=== PATIENT | female | born 1960 | race Caucasian/White ===

== ENCOUNTER → 2018-03-11 17:11 | Outpatient (CLI) | payer BC, SELFPAY ==
--- NOTE | 2018-03-11 17:38 | XR_ITS ---
XR chest 2V HISTORY: Cough congestion trouble breathing ITS.REASON: BRONCHITIS ORDERING PHYSICIAN: ALBERTO Singh PATIENT AGE: 57 years COMPARISON: 04/05/2014 FINDINGS: The cardiomediastinal silhouette and pulmonary vascularity are within normal limits. The lungs are clear without infiltrates, suspicious nodules, or pleural effusions. No acute bony abnormalities. IMPRESSION: Negative chest, no acute finding
== END ==
PROVIDERS: PCP Physician Assistant; Visit Provider Physician Assistant
DX: J40 Bronchitis, not specified as acute or chronic (principal)
CPT/HCPCS: 71046

== ENCOUNTER → 2018-08-14 10:07 | Outpatient (CLI) | payer BC, SELFPAY | PROVIDERS: PCP Family Medicine; Visit Provider Family Medicine | DX: I49.9 Cardiac arrhythmia, unspecified (principal) | CPT/HCPCS: 93225; 93226 ==

== ENCOUNTER → 2019-01-18 16:57 | Outpatient (CLI) | payer BC, SELFPAY ==
--- NOTE | 2019-01-18 17:05 | MM_ITS ---
PROCEDURE: MM DIG SCREENING MAMM BI W/CAD Patient Age:58Y CLINICAL INDICATION: FIBROCYSTIC BREAST DISEASE COMPARISON: DMSB DIGITAL MAMM-SCREEN BILATERAL from 09/12/2011 DMSB DIG MAMM-SCREEN AMERICA from 05/17/2013 DMSB DIG MAMM-SCREEN AMERICA from 08/03/2015 DMSB DIG MAMM-SCREEN AMERICA W/CAD from 09/12/2016 DMDXUAVR DIG MAMM-DX UNI A/VW-RT W/CAD from 09/25/2016 BR US BREAST-RT COMPLETE W/AXILLA from 09/25/2016 DMDXUAVL DIG MAMM-DX UNI A/VWS-LT W/CAD from 09/25/2016 TECHNIQUE: Standard CC and MLO images were obtained. R2 CAD reviewed. FINDINGS: This is a difficult evaluate breast given its asymmetric areas of density and nodularity bilaterally most certainly due to underlying fluctuating fibrocystic changes. Left breast: Appear stable with no new areas of concern. Follow-up 1 year on the left adequate. Right breast: Asymmetric region of increased density throughout superior breast 12 o'clock are again noted and appears similar to previous studies dating back to at least 2015, 2016. A note the patient had multiple cyst on prior ultrasound September 2016 here at the right breast. On close inspection noted distal round densities focally evident in this area towards 12 o'clock suspect cystic count for 2 slightly more evident round density seen today at probable o'clock with the largest measuring up to 9 mm and the other 8 mm size. The since ease are slightly more discrete and standout more so the previous studies I would suggest the patient return for CC and MLO Spot View; along with full 90 degree right breast; with subsequent right breast ultrasound right breast to further evaluate the slightly more focal round densities but these are most certainly cysts. IMPRESSION: Right breast: Asymmetric heterogeneous region of density throughout superior right [id number] additional focal round densities on today's CC views These are most certainly benign cysts but standout and are more apparent on today's images than previous studies... Suggest follow-up right mammogram spot views and subsequent right breast ultrasound to further confirm these are merely benign cysts Left breast. No significant new findings follow-up in 1 year BI-RAD Category: 0 Need Additional Imaging Evaluation FOLLOW-UP: IMM Immediate Follow-up Recommended (A letter has been sent to the patient regarding results of the study. Dictated by: Jessee Gotti MD 02/01/2019 12:11 Signed by: <Electronically signed by Jessee Gotti MD in [place]> 02/01/2019 12:11
== END ==
PROVIDERS: PCP Family Medicine; Visit Provider Family Medicine
DX: Z12.31 Encounter for screening mammogram for malignant neoplasm of breast (principal)
CPT/HCPCS: 77067

== ENCOUNTER → 2019-02-10 14:23 | Outpatient (CLI) | payer BC, SELFPAY ==
--- NOTE | 2019-02-10 14:34 | MM_ITS ---
PROCEDURE: MM DIG MAMM DX UNILAT RT CAD CLINICAL INDICATION: ABNORMAL MAMM Follow-up abnormal mammogram COMPARISON: DMSB DIG MAMM-SCREEN AMERICA from 08/03/2015 DMSB DIG MAMM-SCREEN AMERICA W/CAD from 09/12/2016 DMDXUAVR DIG MAMM-DX UNI A/VW-RT W/CAD from 09/25/2016 BR US BREAST-RT COMPLETE W/AXILLA from 09/25/2016 DMDXUAVL DIG MAMM-DX UNI A/VWS-LT W/CAD from 09/25/2016 MM DIG SCREENING MAMM BI W/CAD from 01/18/2019 US BREAST RT COMPLETE from 02/10/2019 TECHNIQUE: Standard CC and MLO images were obtained. R2 CAD reviewed. FINDINGS: The report delayed waiting on hold reports and technologist worksheet. That has been submitted on 03/01/2019. There is average to dense fibroglandular tissue. Multiple nodular areas are once again noted which fluctuate compared to multiple previous exams. No malignant appearing mass or malignant-appearing microcalcification is evident. One area of nodularity noted in the central aspect of the right breast measures 8 mm as noted on the previous exam and has developed since an older study.. Right breast ultrasound: There is a lobular 8 x 5 mm cyst at 12 o'clock which may correspond to the mammographic abnormality. There is a 2 mm cyst at 9 o'clock and a 9 mm cyst at 9 o'clock. At 11 o'clock there is a complex cystic area at 8 x 9 mm. 4 mm cyst at 11 o'clock. Small nodes are present in the axilla. One area in the a axilla appears to this show some calcification may be due to calcification within lymph nodes. No suspicious breast nodules are evident. IMPRESSION: Probably benign findings. New mammographic abnormality appears to correspond to a lobulated cyst. Complex cystic areas also noted at eleven o'clock. No convincing evidence of malignancy. Calcification noted within a right axillary lymph node nonspecific. Recommend six-month mammographic and sonographic follow-up BI-RAD Category: 3 Probably Benign Finding Short Term Follow-up FOLLOW-UP: 6M 6Month Follow-up (A letter has been sent to the patient regarding results of the study.) Dictated by: Eze Wilson MD 03/01/2019 10:01 Electronically signed by Eze Wilson MD in [place] 03/01/2019 10:01
--- NOTE | 2019-02-10 14:34 | US_ITS ---
PROCEDURE: US BREAST RT COMPLETE CLINICAL INDICATION: ABNORMAL MAMM COMPARISON: BL US BREAST-LT COMPLETE W/AXILLA from 09/25/2016 MM DIG SCREENING MAMM BI W/CAD from 01/18/2019 MM DIG MAMM DX UNILAT RT CAD from 02/10/2019 FINDINGS: Please see detailed combined mammogram and ultrasound report done of the same day IMPRESSION: BI-RADS category 3 probably benign. Recommend six-month mammographic and sonographic follow-up of the right breast Dictated by: Eze Wilson MD 02/18/2019 16:22 Electronically signed by Eze Wilson MD in [place] 02/25/2019 11:56
== END ==
PROVIDERS: PCP Family Medicine; Visit Provider Family Medicine
DX: R92.8 Other abnormal and inconclusive findings on diagnostic imaging of breast (principal)
CPT/HCPCS: 76641; 77065

== ENCOUNTER → 2019-10-25 13:31 | Outpatient (CLI) | payer BC, SELFPAY ==
--- NOTE | 2019-10-25 13:35 | MM_ITS ---
PROCEDURE: MM DIG MAMM DX UNILAT RT CAD Digital Breast Tomosynthesis Included CLINICAL INDICATION: ABN MAMM Follow-up abnormal mammogram COMPARISON: BR US BREAST-RT from 03/21/2014 DMDXUAVL DIG MAMM-DX UNI A/VWS-LT W/CAD from 09/25/2016 BR US BREAST-RT COMPLETE W/AXILLA from 09/25/2016 CXR2V XR chest 2V from 03/11/2018 MM DIG SCREENING MAMM BI W/CAD from 01/18/2019 MM DIG MAMM DX UNILAT RT CAD from 02/10/2019 US BREAST RT COMPLETE from 02/10/2019 US BREAST RT COMPLETE from 10/25/2019 TECHNIQUE: Standard images commas problem solving views, tomographic images, and right breast ultrasound FINDINGS: Average fibroglandular tissue. No malignant appearing mass or malignant-appearing microcalcification Right breast ultrasound: Complicated 8 mm cyst at 12 o'clock unchanged, 5 mm cyst at 3 o'clock new, 8 mm cyst at 11 o'clock, additional 8 mm complicated cyst at 11 o'clock, calcified node in the right axilla IMPRESSION: No change. No convincing evidence of malignancy BI-RAD Category: 2 Benign Finding(s) FOLLOW-UP: Resume bilateral screening mammogram January 2020 (A letter has been sent to the patient regarding results of the study.) Dictated by: Eze Wilson MD 10/28/2019 08:54 Electronically signed by Eze Wilson MD in [place] 10/28/2019 08:54
== END ==
PROVIDERS: PCP Family Medicine; Visit Provider Family Medicine
DX: R92.8 Other abnormal and inconclusive findings on diagnostic imaging of breast (principal)
CPT/HCPCS: 76641; 77061; 77065; G0279

== ENCOUNTER → 2020-06-19 12:47 | Outpatient (CLI) | payer BC, SELFPAY ==
--- NOTE | 2020-06-19 12:51 | MM_ITS ---
PROCEDURE: MM DIG SCREENING MAMM BI W/CAD Digital Breast Tomosynthesis Included CLINICAL INDICATION: SCREENING There is no personal or family history of breast cancer there has been a previous biopsy right breast for benign disease. The patient is currently on estradiol COMPARISON: MG MM DIG SCREENING MAMM BI W/CAD from 01/18/2019 MG MM DIG MAMM DX UNILAT RT CAD from 02/10/2019 MG MM DIG MAMM DX UNILAT RT CAD from 10/25/2019 TECHNIQUE: Standard CC and MLO images and 3D Tomosynthesis was obtained. R2 CAD reviewed. FINDINGS: Prominent somewhat heterogenic fibroglandular densities are seen in both breast primarily upper outer quadrants. There is a mole marker upper central portion right breast. Alex images are most helpful in this type of dense breast parenchyma. Again noted are asymmetric glandular elements upper central portion right breast which appear to be stable. The recent ultrasound study in February 2019 showed several small benign-appearing cysts right breast. There is no new or suspicious lesion in either breast and no suspicious microcalcifications. . IMPRESSION: Moderate heterogenic breast density with no suspicious lesions seen BI-RAD Category: 2 Benign Finding(s) FOLLOW-UP: 1YR 1 Year Follow-up (A letter has been sent to the patient regarding results of the study.) Dictated by: Dr. Candido Trivedi MD 06/21/2020 07:48 Dr. Candido Trivedi MD in [place] 06/21/2020 07:48
== END ==
PROVIDERS: PCP Family Medicine; Visit Provider Family Medicine
DX: Z12.31 Encounter for screening mammogram for malignant neoplasm of breast (principal)
CPT/HCPCS: 77063; 77067

== ENCOUNTER → 2021-05-22 12:42 | Outpatient (CLI) | payer BC, SELFPAY ==
--- NOTE | 2021-05-22 12:48 | XR_ITS ---
PROCEDURE: XR CHEST PORTABLE CLINICAL HISTORY: COVID TESTING COMPARISON: CR CXR CHEST(2 VIEWS-NOT PORTABLE) from 04/05/2014 CR CXR2V XR chest 2V from 03/11/2018 FINDINGS: The cardiomediastinal silhouette and pulmonary vascularity are within normal limits. The lungs are clear without infiltrates, suspicious nodules, or pleural effusions. Mild lumbar scoliosis convex right. Bone plate is present over lower cervical spine IMPRESSION: No acute findings. Dictated by: Eze Wilson MD 05/22/2021 13:40 Eze Wilson MD in [place] 05/22/2021 13:40
[2021-05-22 13:22] LABS: Adenovirus,PCR Not Detected (NotDetected); Bordetella Pertussis Not Detected (NotDetected); Chlamydophila Pneumoniae, PCR Not Detected (NotDetected); Coronavirus 19, PCR Not Detected (NotDetected); Coronavirus 229E Not Detected (NotDetected); Coronavirus NL63 Not Detected (NotDetected); Coronavirus OC43 Not Detected (NotDetected); Coronovirus HKU1,PCR Not Detected (NotDetected); Human Metapneumovirus Not Detected (NotDetected); Influenza A, PCR Not Detected (NotDetected); Influenza AH1, 2009 Not Detected (NotDetected); Influenza AH1, PCR Not Detected (NotDetected); Influenza AH3,PCR Not Detected (NotDetected); Influenza B, PCR Not Detected (NotDetected); Mycoplasma Pneumoniae, PCR Not Detected (NotDetected); Parainfluenza 1, PCR Not Detected (NotDetected); Parainfluenza 2, PCR Not Detected (NotDetected); Parainfluenza 3, PCR Not Detected (NotDetected); Parainfluenza 4, PCR Not Detected (NotDetected); Respiratory Syncytial Virus Not Detected (NotDetected)
[2021-05-22 13:58] LABS: Basophils # 0.1 K/mm3 (0-0.2); Basophils % 0.7 % (0.1-2.0); Eosinophils # 0.1 K/mm3 (0.0-0.4); Eosinophils % 1.3 % (0.1-12.0); Hematocrit 40.8 % (37.0-47.0); Hemoglobin 14.5 g/dL (12.2-16.2); Lymphocytes # 2.2 K/mm3 (0.7-4.5); Lymphocytes % 22.4 % (10-50); Mean Corpuscular HGB Conc 35.5 g/dL (31.8-35.4); Mean Corpuscular Hemoglobin 32.7 pg (27.0-31.2); Mean Corpuscular Volume 92.3 fl (81-99); Mean Platelet Volume 8.6 fl (7.4-10.4); Monocytes # 0.5 K/mm3 (0.1-1.0); Monocytes % 4.6 % (1.7-9.3); Neutrophils # 7.1 K/mm3 (1.8-7.8); Neutrophils % 70.9 % (37.0-80.0); Platelet Count 391 K/mm3 (142-424); Red Blood Count 4.42 M/mm3 (4.20-5.40)
[2021-05-22 15:31] LABS: Rhinovirus/Enterovirus Detected (NotDetected)
== END ==
PROVIDERS: PCP Physician Assistant; Visit Provider Physician Assistant
DX: Z20.822 Contact with and (suspected) exposure to COVID-19 (principal); B34.1 Enterovirus infection, unspecified
CPT/HCPCS: 36415; 71045; 85025; 87581; 87632; 87798; C9803; U0003; U0005

== ENCOUNTER → 2022-01-30 15:03 | Outpatient (CLI) | payer BC, SELFPAY ==
--- NOTE | 2022-01-30 15:07 | MM_ITS ---
PROCEDURE INFORMATION: Exam: MG Bilateral Screening 3D Mammography Exam date and time: 01/30/2022 3:04 PM Age: 61 years old Clinical indication: Screening examination. No family history of breast cancer. TECHNIQUE: Imaging protocol: Bilateral Screening tomosynthesis and 2D mammography including computer-aided detection (CAD) when performed. COMPARISON: 1. MG MM DIG SCREENING MAMM BI W/CAD 06/19/2020 1:11 PM 2. MG MM DIG MAMM DX UNILAT RT CAD 10/25/2019 1:44 PM 3. MG MM DIG MAMM DX UNILAT RT CAD 02/10/2019 2:51 PM 4. MG MM DIG SCREENING MAMM BI W/CAD 01/18/2019 5:13 PM MG DMSB DIGITAL MAMM-SCREEN BILATERAL 08/20/2010 3:27 PM OT DIGMAMMS MAMMOGRAM SCREEN-[employer]AR[employer] HELPER N/C 06/25/2009 3:44 PM OT DIGMAMMS MAMMOGRAM SCREEN-[employer] HELPER N/C 01/17/2008 11:44 PM FINDINGS: MAMMOGRAPHY: Breast composition: The breasts are heterogeneously dense, which may obscure small masses. Mass: None. Architectural distortion: None. Calcifications: No suspicious calcifications. Asymmetric density: Stable blood regionally asymmetry, up to 5.0 cm, in the inner upper right breast, since 01/17/2008. Skin thickening: None. Axillary adenopathy: None. IMPRESSION: Stable focal asymmetry in the right upper inner breast, clinical correlation to this quadrant is recommended, and if negative clinically, annual screening is recommended. ASSESSMENT: BI-RADS Category 2: Benign
== END ==
PROVIDERS: PCP Physician Assistant; Visit Provider Family Medicine
DX: Z12.31 Encounter for screening mammogram for malignant neoplasm of breast (principal)
CPT/HCPCS: 77063; 77067

== ENCOUNTER 2022-05-08 17:18 | Emergency (ER) | payer BC, SELFPAY ==
[2022-05-08 17:45] VITALS: BP 182/113; PULSE 79; RESP 17; TEMP 36.8; O2SAT 99
[2022-05-08 18:00] VITALS: BP 182/113; PULSE 79; O2SAT 96
--- NOTE | 2022-05-08 18:05 | ECG_ITS ---
APPROVED REPORT Exam: Resting ECG HR:75 bpm ECG Measurements Heart Rate 75 AXES NM 128 P 81 QRSd 84 QRS 76 QT 368 T 76 QTc 397 Conclusion SINUS RHYTHM Bi-atrial enlargement with short NM interval Late R wave progression U wave noted ABNORMAL ECG UNCONFIRMED REPORT Electronically signed by : Hernesto Meza MD 05/10/2022 12:17:54
--- NOTE | 2022-05-08 18:10 | HMH.EDGENADL ---
Discharge Plan Disposition Patient Disposition: Home, Self-Care Condition: Good Chief Complaint: Recheck/Abnormal Lab/Rx Referrals Follow up/Referrals: Paris Menard MD [Primary Care Provider] - See instructions Clinical Impressions Clinical Impression: Asymptomatic hypertension Instructions Patient Instructions: Essential Hypertension Discharge ED Provider: Rodo Mruillo Adult HPI General Chief complaint: Recheck/Abnormal Lab/Rx Stated complaint: bp high Time Seen by Provider: 05/08/22 18:02 Mode of Arrival: Ambulatory Limitations: No Limitations Description of Symptoms (Recalled from ER Triage Doc. by RN): PT REPORTS HEADACHE YESTERDAY, CHECKED B/P THIS AM STATES 169/105 AND HAS CONTINUED TO INCREASE. MADE APPT WITH PCP, STARTED ON LOSARTIN, WHICH SHE HAD BEEN ON IN THE PAST, B/P HAS CONTINUED TO INCREASED AFTER 2ND DOSE OF LOSARTIN ORDERED BY PCP. PT ASYMPTOMATIC AT THIS TIME History of Present Illness HPI narrative: 62-year-old female, prior history of hypertension as well as cardiac arrhythmia, on Tambocor and flecainide, had previously been on losartan but off of it for some time, since she had a headache yesterday check blood pressure was elevated went to PCP today who started her back on the losartan, she serially checked her blood pressure multiple times afterwards and had a peak systolic pressure of 200, currently is 180, she denies any symptomology with this at all, specifically no chest pain, shortness of breath. Other than the losartan that she was prescribed, there is been no other treatments initiated. Related Data Allergies Allergy/AdvReac Type Severity Reaction Status Date / Time Codeine Allergy Unknown Uncoded 05/26/17 14:45 From Penicillin V Potassium Allergy Unknown Uncoded 05/26/17 14:45 Penicillin Allergy Unknown Uncoded 05/26/17 14:45 [facility] Disclaimer: The information contained in this section may have been updated after the patient was seen, as this information can be updated by other users. Medical History Asthma COPD (chronic obstructive pulmonary disease) Hypertension Family History Other No significant family history Social History Smoking Status: Current every day smoker alcohol intake: never current occupational status: employed Travel in the last 8 weeks: None ROS Obtained: Yes Systems reviewed as appropriate & no additional complaints except as documented Constitutional Constitutional: Reports system reviewed and no additional complaints, except as documented Eyes Eyes: Reports system reviewed and no additional complaints, except as documented ENT Ears, Nose, Mouth, and Throat: Reports system reviewed and no additional complaints, except as documented Cardiovascular Cardiovascular: Reports system reviewed and no additional complaints, except as documented Respiratory Respiratory: Reports system reviewed and no additional complaints, except as documented Gastrointestinal Gastrointestingal: Reports system reviewed and no additional complaints, except as documented Genitourinary Female Genitourinary: Reports system reviewed and no additional complaints, except as documented Musculoskeletal Musculoskeletal: Reports system reviewed and no additional complaints, except as documented Integumentary/Breasts Skin/Breast: Reports system reviewed and no additional complaints, except as documented Neurologic Neurologic: Reports system reviewed and no additional complaints, except as documented Endocrine Endocrine: Reports system reviewed and no additional complaints, except as documented Hematologic/Lymphatic Henatologic/Lymphatic: Reports system reviewed and no additional complaints, except as documented Allergic/Immunologic Allergic/Immunologic: Reports system reviewed and no additional complaints, ex
[2022-05-08 18:30] VITALS: BP 181/106
[2022-05-08 18:31] LABS: Basophils # 0.1 K/mm3 (0-0.2); Basophils % 1.1 % (0.1-2.0); Eosinophils # 0.2 K/mm3 (0.0-0.4); Eosinophils % 3.1 % (0.1-12.0); Hematocrit 46.9 % (37.0-47.0); Hemoglobin 15.2 g/dL (12.2-16.2); Lymphocytes # 1.2 K/mm3 (0.7-4.5); Lymphocytes % 22.5 % (10-50); Mean Corpuscular HGB Conc 32.3 g/dL (31.8-35.4); Mean Corpuscular Hemoglobin 30.7 pg (27.0-31.2); Mean Platelet Volume 8.1 fl (7.4-10.4); Monocytes # 0.3 K/mm3 (0.1-1.0); Monocytes % 6.3 % (1.7-9.3); Neutrophils # 3.5 K/mm3 (1.8-7.8); Platelet Count 271 K/mm3 (142-424); Red Blood Count 4.94 M/mm3 (4.20-5.40); Red Cell Distribution Width 14.1 % (11.5-17.5); White Blood Count 5.2 K/mm3 (4.8-10.8)
[2022-05-08 18:32] LABS: Chloride 104 mmol/L (98-107); Potassium 3.5 mmoL/L (3.5-5.1); Sodium 141 mmol/L (136-145)
[2022-05-08 18:34] LABS: Alanine Aminotransferase 14 U/L (12-78); Aspartate Amino Transferase 31 U/L (14-36); Blood Urea Nitrogen 6 mg/dl (7-17); Creatinine Clearance Estimated 50 mL/min (50-200); Estimated Glomerular Filt Rate 63 ml/min (>60); GFR (African American) 77 ML/MIN (>60)
[2022-05-08 18:35] LABS: Albumin Level 4.1 g/dl (3.5-5.0); Albumin/Globulin Ratio 1.5 (1.1-1.8); Alkaline Phosphatase 123 U/L (38-126); Anion Gap 8.5 mEq/L (5-15); Bilirubin,Total 0.3 mg/dl (0.2-1.3); Calcium 9.5 mg/dl (8.4-10.2); Carbon Dioxide 32 mmol/L (22.0-30.0); Globulin 2.7 g/dL (1.3-3.2); Glucose 90 mg/dl (74-100); Total Protein,Serum 6.8 g/dl (6.3-8.2)
[2022-05-08 19:00] VITALS: BP 191/104
[2022-05-08 19:37] VITALS: BP 190/112; PULSE 75; RESP 18; TEMP 36.6; O2SAT 98
[2022-05-08 19:39] VITALS: BP 190/112
== END 2022-05-08 19:40 | disposition home or self-care (01) ==
PROVIDERS: Emergency Provider Emergency Medicine; PCP Family Medicine
DX: I10 Essential (primary) hypertension (principal); Z88.0 Allergy status to penicillin; Z88.6 Allergy status to analgesic agent; J44.9 Chronic obstructive pulmonary disease, unspecified
CPT/HCPCS: 80053; 85025; 93005; 99283

== ENCOUNTER → 2022-06-25 10:51 | Outpatient (CLI) | payer BC, SELFPAY ==
--- NOTE | 2022-06-25 10:56 | XR_ITS ---
FINAL REPORT CLINICAL HISTORY: L FOOT PAIN order was originally put in wrong as a cxr, modified to a foot xray, lt foot is the correct exam done FINDINGS: Right foot Three views were obtained. There is no acute fracture or dislocation. There is multi joint degenerative disease. No soft tissue abnormality is identified. IMPRESSION: No acute process. Reviewed, Interpreted and Dictated by Rea Anderson MD Transcribed by Frances Caceres Authenticated and [facility]
== END ==
LOC: RAD 10:52
PROVIDERS: PCP Family Medicine; Visit Provider Physician Assistant
DX: M79.672 Pain in left foot (principal)
CPT/HCPCS: 73630

== ENCOUNTER 2023-06-11 15:05 | Outpatient (CLI) | payer BC, SELFPAY ==
--- NOTE | 2023-06-11 15:11 | MM_ITS ---
PROCEDURE INFORMATION: Exam: MG Bilateral Screening 3D Mammography Exam date and time: 06/11/2023 3:09 PM Age: 63 years old Clinical indication: Screening examination TECHNIQUE: Imaging protocol: Bilateral Screening tomosynthesis and 2D mammography including computer-aided detection (CAD) when performed. COMPARISON: 1. MG MM DIG SCREENING MAMM BI W/CAD 01/30/2022 3:04 PM 2. MG MM DIG SCREENING MAMM BI W/CAD 06/19/2020 1:11 PM FINDINGS: MAMMOGRAPHY: Breast composition: The breasts are heterogeneously dense, which may obscure small masses. Mass: None. Architectural distortion: None. Calcifications: No suspicious calcifications. Asymmetric density: None. Skin thickening: None. Axillary adenopathy: None. IMPRESSION: No mammographic evidence of malignancy. Annual screening is recommended unless otherwise clinically indicated. ASSESSMENT: BI-RADS Category 1: Negative
== END 2023-06-11 23:59 ==
LOC: RAD 15:06
PROVIDERS: PCP Family Medicine; Visit Provider Family Medicine
DX: Z12.31 Encounter for screening mammogram for malignant neoplasm of breast (principal)
CPT/HCPCS: 77063; 77067

== ENCOUNTER 2023-08-27 12:48 | Outpatient (CLI) | payer BC, SELFPAY ==
--- NOTE | 2023-08-27 12:52 | XR_ITS ---
FINAL REPORT CLINICAL HISTORY: LUMBAGO W/SCIATICA COMPARISON: None FINDINGS: 5 views of the lumbar spine were obtained. There is no evidence of fracture or dislocation. There is dextroscoliosis of the lumbar spine. There is mild right lateral subluxation of L 3 on L 4. Mild and moderate degenerative change is present with multilevel osteophytes. No paraspinous soft tissue abnormalities identified. IMPRESSION: No acute bony abnormality. Mild and moderate degenerative change with dextroscoliosis and mild right lateral subluxation of L3 on L4. Reviewed, Interpreted and Dictated by Franky Dotson III, MD Transcribed by Latonia Brock Authenticated and . [facility]
== END 2023-08-27 23:59 ==
LOC: RAD 12:48
PROVIDERS: PCP Physician Assistant; Visit Provider Physician Assistant
DX: M54.41 Lumbago with sciatica, right side (principal)
CPT/HCPCS: 72110

== ENCOUNTER 2024-12-26 12:44 | Outpatient (CLI) | payer BC, SELFPAY ==
--- OUTSIDE RECORDS SUMMARY | 2024-10-10 06:00 | XMS_ITS ---
Author Organization [facility] Address [address] [place] [id number] Care Team Providers Care Etl Data Architect Name Role Phone Jaleesa Menard Primary Care Provider Elida Rowe Unavailable [phone] Results Component Value Reference Range Notes CBC Fingerstick (in house) Reviewed date:10/20/2024 09:46:48 AM Interpretation: Normal Performing Lab: Notes/Report: Normal wbc 6.5 3.5 - 10 lym 25.0 15 - 50 mid 6.1 2 - 15 gran 68.9 35 - 80 rbc 4.77 3.5 - 5.5 hgb 15.0 11.5 - 16.5 hct 44.6 35 - 55 mcv 93.4 75 - 100 mch 31.4 25 - 35 mchc 33.6 31 - 38 plat 324 100 - 400 P-Vitamin B12 Reviewed date:10/20/2024 09:46:48 AM Interpretation:1362 Performing Lab: Notes/Report: Test performed by [facility] [address] , [address], [place] [address] Tristan Encarnacion MD, [employer] CLIA: [id number] Vitamin B12 [phone] pg/mL P-Comprehensive Metabolic Pa sheila (CMP) Reviewed date:10/20/2024 09:46:48 AM Interpretation:Creat 1.12, eGFR 55, Alk Phos 132 Performing Lab: Notes/Report: Test performed by [facility] [address] [place], [place] [address] [address] , [address], [place] [address] Tristan Encarnacion MD, [employer] CLIA: [id number] Sodium 142 135-145 mmol/L Potassium 4.3 3.5-5.3 mmol/L Chloride 103 97-108 mmol/L CO2 30 22-32 mmol/L Glucose 88 65-99 mg/dL BUN 9 8-23 mg/dL Creatinine 1.12 0.50-1.00 mg/dL Calcium 9.6 8.6-10.4 mg/dL eGFR by Creatinine 55 >59 mL/min/1.73m2 Protein 6.8 6.0-8.3 g/dL Albumin 4.3 3.5-5.3 g/dL Alkaline Phosphatase 132 35-121 IU/L ALT (SGPT) 7 <5-47 IU/L AST (SGOT) 12 <5-40 IU/L Bilirubin, Total 0.5 <0.2-1.2 mg/dL A/G Ratio 1.7 1.1-2.5 P-Lipid Panel Reviewed date:10/20/2024 09:46:48 AM Interpretation:non-HDL 139 Performing Lab: Notes/Report: Test performed by [facility], [address] , [address], [place] [address] Tristan Encarnacion MD, [employer] CLIA: [id number] Cholesterol 190 <200 mg/dL Triglycerides 132 <150 mg/dL HDL Cholesterol 51 >39 mg/dL Cholesterol / HDL Ratio 3.73 0.00-4.44 Ratio Non-HDL Cholesterol 139 <130 mg/dL LDL Cholesterol (Calculation) 113 <130 mg/dL LDL Cholesterol Levels* Less than 100 mg/dL Optimal 100 to 129 mg/dL Near Optimal/ Above Optimal 130 to 159 mg/dL Borderline High 160 to 189 mg/dL High 190 mg/dL and above Very High * Categories as recommended by the 2004 ATPIII guidelines LDL/HDL Ratio 2.2 <3.3 Ratio LDL Cholesterol Patient History Test Date: 06/17/2023 LDL Results: 114 Units: mg/dL % Change: - Test Date: 10/10/2024 LDL Results: 113 Units: mg/dL % Change: 0% P-TSH reflex to FT4 Reviewed date:10/20/2024 09:46:48 AM Interpretation: Normal Performing Lab: Notes/Report: Test performed by [facility] [address] [place] [address] , [place] [address] Tristan Encarnacion MD, [employer] CLIA: [id number] TSH reflex to FT4 0.76 0.43-5.25 mU/L P-Vitamin D, 1, 25 Dihydroxy Reviewed date:10/20/2024 09:46:48 AM Interpretation: Normal Performing Lab: Notes/Report: Test performed by [facility] [address] [place] [address] , [address], [place] [address] Tristan Encarnacion MD, [employer] CLIA: [id number] Vitamin D, 1, 25 Dihydroxy 42.7 19.9-79.3 pg/m L REASON FOR VISIT blood work Encounters Encounter Location Date Provider Diagnosis [facility] [address] [facility] [address] [place], [place] [id number] 10/10/2024 Elida Rowe Essential hypertensi on I10 ; Hyperlipidemia, unspecified hyperlipidemia type E78.5 ; Depression with anxiety F41.8 ; Vitamin D deficiency E55.9 and Vitamin B12 deficiency E53.8 Assessments Encounter Date Diagnosis (ICD Code) Assessment Notes Treatment Notes Treatment Clinical Notes Section Notes 10/10/2024 Essential hypertension (ICD-10 - I10) 10/10/2024 Hyperlipidemia, unspecified hyperlipidemia type (ICD-10 - E78.5) 10/10/2024 Depression with anxiety (ICD-10 - F41.8) 10/10/2024 Vitamin D deficiency (ICD-10 - E55.9) 10/10/2024 Vitamin B12 deficiency (ICD-10 - E53.8) Plan Of Treatment No Information Progress Notes * DEBBIE CALZADAOB:1960 ([age] yo F)Acc No.[id number]:10/10/2024 Patient: HENNY ALVAREZ Provider: ALBERTO Freed :1960 A ge:64 Y S ex:Female Date:10/10/2024 Address:[address] [place] [address] , [place], [id number] Pcp:Jaleesa Menard Subjective: * Chief Complaints: * 1 . Blood work. * Medical History: Objective: * Vitals: Assessment: * Assessment: 1. E ssential hypertension - I10 2 . H yperlipidemia, unspecified hyperlipidemia type - E78.5 3 . D epression with anxiety - F41.8 4 . V itamin D deficiency - E55.9 5 . V itamin B12 deficiency - E53.8 ? Plan: * Treatment: Value Reference Range A /G Ratio 1.7 1.1-2.5 - * A lbumin 4.3 3.5-5.3 - g/dL * A lkaline Phosphatase 132 H 35-121 - IU/L * A LT (SGPT) 7 <5-47 - IU/L * A ST (SGOT) 12 <5-40 - IU/L * B ilirubin, Total 0.5 <0.2-1.2 - mg/dL * B UN 9 8-23 - mg/dL * C alcium 9.6 8.6-10.4 - mg/dL * C hloride 103 97-108 - mmol/L * C O2 30 22-32 - mmol/L * C reatinine 1.12 H 0.50-1.00 - mg/dL * G lucose 88 65-99 - mg/dL * P otassium 4.3 3.5-5.3 - mmol/L * S odium 142 135-145 - mmol/L * P rotein 6.8 6.0-8.3 - g/dL * e GFR by Creatinine 55 L >59 - mL/min/1.73m2 * Malissa Valverde 10/20/2024 09: 46:40 AM > See phone encounter ?LAB: CBC Fingerstick (in house) (Collection Date & Time - 10/10/2024)? Normal* Value Reference Range w bc 6.5 3.5 - 10 * l ym 25.0 15 - 50 * m id 6.1 2 - 15 * g ran 68.9 35 - 80 * r bc 4.77 3.5 - 5.5 * h gb 15.0 11.5 - 16.5 * h ct 44.6 35 - 55 * m cv 93.4 75 - 100 * m ch 31.4 25 - 35 * m chc 33.6 31 - 38 * p lat 324 100 - 400 * Dori Lawrence 10/10/2024 10:31 :09 AM > Malissa Valverde 10/20/2024 09:46:40 AM > See phone encounter 2.?Hyperlipidemia, unspecified hyperlipidemia type?LAB: P-Lipid Panel (Collection Date & Time - 10/10/2024 09:05 AM)?non-HDL 139* Value Reference Range C holesterol / HDL Ratio 3.73 0.00-4.44 - Ratio * C holesterol 190 <200 - mg/dL * H DL Cholesterol 51 >39 - mg/dL * L DL Cholesterol (Calculation) 113 <130 - mg/d L * L DL/HDL Ratio 2.2 <3.3 - Ratio * N on-HDL Cholesterol 139 H <130 - mg/dL * T riglycerides 132 <150 - mg/dL * Malissa Valverde 10/20/2024 09: 46:40 AM > See phone encounter 3.?Depression with anxiety?LAB: P-TSH reflex to FT4 (Collection Date & Time - 10/10/2024 09:05 AM)? Normal* Value Reference Range T SH reflex to FT4 0.76 0.43-5.25 - mU/L * Malissa Valverde 10/20/2024 09: 46:40 AM > See phone encounter 4.?Vitamin D deficiency?LAB: P-Vitamin D, 1, 25 Dihydroxy (Collection Date & Time - 10/10/2024 09:05 AM)?Normal* Value Reference Range V itamin D, 1, 25 Dihydroxy 42.7 19.9-79.3 - pg /mL * Malissa Valverde 10/20/2024 09: 46:40 AM > See phone encounter 5.?Vitamin B12 deficiency?LAB: P-Vitamin B12 (Collection Date & Time - 10/10/2024 09:05 AM)?1362* Value Reference Range V itamin B12 1362 H 232-1245 - pg/mL * Malissa Valverde 10/20/2024 09: 46:40 AM > See phone encounter * Procedure Codes: 8 5025 CBC WITH AUTO DIFF * Images: Billing Information: * Visit Code: * Procedure Codes: 87162 CBC WITH AUTO DIFF. * Electronic signature of ALBERTO Mustafa on 12/26/2024 at 12:47 PM EDT Sign off status: Pending * Provider: ALBERTO Freed Date: 0 10/10/2024 Generated for Jessie guy/Boy/eTransmitting on: 0 12/26/2024 12:47 PM EDT
--- OUTSIDE RECORDS SUMMARY | 2024-11-08 12:15 | XMS_ITS ---
Author Organization [facility] Address [address] [facility] [address] [place] [id number] Care Team Providers Care Gsa Coordinator Name Role Phone Jaleesa Menard Primary Care Provider Alexa Mckee Unavailable [phone] Allergies Allergen (clinical drug ingredient) Drug/Non Drug Allergy documented on EMR Reaction Allergy Type Onset Date Status fluticasone / salmeterol Advair Diskus hoarse Drug Allerg y Active formoterol / mometasone Dulera hoarse Drug Allergy Active codeine Codeine Unknown Drug Allergy Active Substance with penicillin structure and antibacterial mechanism of action (substance) Penicillins Unknown Drug Allergy Active sulindac Sulindac itching Drug Allergy Active Results Component Value Reference Range Notes CBC Fingerstick (in house) Reviewed date:11/09/2024 06:56:34 AM Interpretation: Performing Lab: Notes/Report: wbc 9.2 3.5 - 10 lym 24.6% 15 - 50 mid 5.0% 2 - 15 gran 70.4% 35 - 80 rbc 4.15 3.5 - 5.5 hgb 13.0 11.5 - 16.5 hct 38.8 35 - 55 mcv 93.5 75 - 100 mch 31.3 25 - 35 mchc 33.5 31 - 38 plat 341 100 - 400 REASON FOR VISIT cough, congestion Medications Medication SIG (Take, Route, Frequency, Duration) Notes Start Date End Date Status Allergy Relief 10 mg TAKE 1 tab(s) BY MO UTH once a day FOR 30 days; Duration: 30 Active Meloxicam 7.5 MG 1 tablet Orally twic e a day; Duration: 30 day(s) 03/17/2024 Not-Taking Losartan Potassium 50 MG 1 tablet Orally once daily; Duration: 90 days Active Estradiol 2 MG 1 tablet Orally Once a day; Duration: 90 days Active Cefdinir 300 MG as directed Orally twice a day; Duration: 7 days 11/08/2024 Active Flecainide Acetate 50 MG 1 tab(s) Orally every 12 hrs; Duration: 30 days Active Trelegy Ellipta 200-62.5-25 MCG/ACT 1 puff Inhalation Once a day Active Montelukast Sodium 10 MG 1 tablet Orally once daily; Duration: 90 days Active Vitamin D3 125 MCG (5000 UT) 1 capsule Orally Once a day 06/23/2023 Active Fluticasone Propionate 50 MCG/ACT place 1 spray in each nostril Nasally Once a day 30 day(s); Duration: 30 Active Medrol 4 MG as directed Orally daily; Duration: 6 days 11/08/2024 Active Vitamin B-12 1000 MCG 1 tab(s) orally on ce a day; Duration: 30 day(s) 08/22/2015 Active Vital Signs Weight 119.2 lbs 11/08/2024 Blood pressure systolic 130 mm Hg 11/09/19 25 Blood pressure diastolic 80 mm Hg 025 Heart Rate 75 /min 11/08/2024 Height 64 in 11/08/2024 BMI 20.46 kg/m2 11/08/2024 Encounters Encounter Location Date Provider Diagnosis [facility] [address] [place] [id number] 11/08/2024 Alexadarron Mckee Bronchitis J40 ; Tobacco abuse Z72.0 and BMI 20.0-20.9, adult Z68.20 Assessments Encounter Date Diagnosis (ICD Code) Assessment Notes Treatment Notes Treatment Clinical Notes Section Notes 11/08/2024 Bronchitis (ICD-10 - J40) fluids, rest, supportive measures for fever/symptom relief; try not to smoke 11/08/2024 Tobacco abuse (ICD-10 - Z72.0) she has decreased to 1/2 PPD and continues to work on cessation 11/08/2024 BMI 20.0-20.9, adult (ICD-10 - Z68.20) Plan Of Treatment Medication Medication Name Sig Start Date Stop Date Notes Cefdinir 300 MG as directed Orally t wice a day; Duration: 7 days 11/08/2024 Medrol 4 MG as directed Orally daily; Duration: 6 days 08/2024 Treatment Notes Assessment Notes Bronchitis fluids, rest, suppor tive measures for fever/symptom relief; try not to smoke Tobacco abuse she has decreased to 1/2 PPD and continues to work on cessation Next Appt Details Follow Up: prn, 1 week if no t better, Reason: Progress Notes * DEBBIE CALZADAOB:1960 ([age] yo F)Acc No.[id number]:11/08/2024 Progress Notes Patient: HENNY ALVAREZ Provider: NICOLE Austin :1960 A ge:64 Y S ex:Female Date:11/08/2024 Address:[address] [place] [address] , [place], [id number] Pcp:Jaleesa Menard Subjective: * Chief Complaints: * 1 . Cough, congestion. * HPI: E NT/respiratory: wheezing at home. 64 year old female presents with c/o cough yellow sputum production. Pt states she [facility] on Thursday and since then she has had increased congestion and productive cough. Pt denies fever but has noticed some chills. c/o nasal congestion. c/o ear pain b ubbly, bilateral. c/o rhinorrhea s ome. c/o post nasal drainage. c/o Short of Breath w ith exertion. c/o headache. c/o smoking. Denies : sore throat. D enies : Fever. D enies : Chest Pain. D enies : chest congestion. D enies : body aches. G astroenterology: c/o Nausea. * ROS: D ERMATOLOGY: no R blair. n o H nghia. G ASTROENTEROLOGY: no N ausea. n o V omiting. n o D iarrhea.? U ROLOGY: no D ifficulty urinating. n o B lood in urine. * Medical History: T AH, Tachypalpitation, Migraine, Asthma, Normal Heart Cath, Except MVP, 07/01/2007, LS x-rays, Disc Space Narrowing L4-5, 11/07/2013, COPD, Allergic rhinitis. * Surgical History: H ysterectomy , Cholecystectomy , C5-C6 Disc Cervical Discectomy & Fusion; [facility] Dr. Jimenez 08/13/2007, Back Injections 05/2014, Back Injections 06/2014. * Hospitalization/Major Diagno stic Procedure: H BP & Palpitations 2003, Bacterial Infection of Stomach 01/10/2008, Irregular Heartbeat 12/2009. * Family History: F ather: alive 86 yrs, coronary artery disease. M other: alive 86 yrs, stroke. 1 sister(s) - healthy. 1 son(s) - healthy. . * Social History: C URRENT TOBACCO USE S moking Status: l ight tobacco smoker. C affeine: yes, frequency:daily. Exercise: yes. Home smoke detector use: yes. Marital Status: Single. 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 Past smoking status: yes, Smoking status: Patient does smoke, Packs per day: 0.5, Smoking preference: cigarettes. Recreational drug use: no. Alcohol: no. Sexually active: yes. Travel ouside [place]: no. * Medications: T aking Vitamin B-12 1000 MCG Tablet 1 tab(s) orally once a day , Taking Vitamin D3 125 MCG (5000 UT) Capsule 1 capsule Orally Once a day , Taking Fluticasone Propionate 50 MCG/ACT Suspension place 1 spray in each nostril Nasally Once a day 30 day(s) , Taking Trelegy Ellipta 200-62.5-25 MCG/ACT Aerosol Powder Breath Activated 1 puff Inhalation Once a day , Taking Montelukast Sodium 10 MG Tablet 1 tablet Orally once daily , Taking Flecainide Acetate 50 MG Tablet 1 tab(s) Orally every 12 hrs , Taking Losartan Potassium 50 MG Tablet 1 tablet Orally once daily , Taking Estradiol 2 MG Tablet 1 tablet Orally Once a day , Taking Allergy Relief 10 mg Tablet TAKE 1 tab(s) BY MOUTH once a day FOR 30 days , Not-Taking Meloxicam 7.5 MG Tablet 1 tablet Orally twice a day , Medication List reviewed and reconciled with the patient * Allergies: P enicillins, Codeine, Advair Diskus: hoarse, Dulera: hoarse, Sulindac: itching. Objective: * Vitals: W t: 119.2, Temp: 98.0, BP: 130/80, HR: 75, O2 Sat: 95% on RA, Nurse: PRAVEENA, Ht: 64, BMI:20.46. * Examination: E NT/Respiratory: Ears: T M's WNL. S inuses : n on tender bilaterally. O ral cavity : n o erythema or exudate seen on pharynx. N radha : n o cervical lymphadenopathy. L ungs: c rackles LLL, wet cough. G eneral Examination: General Appearance: N AD, appears healthy. H EENT: n ormal. O ral cavity: m ild erythema. N radha: n o lymphadenopathy. H eart: R RR. B ack: p ain in lower back. Assessment: * Assessment: 1. B ronchitis - J40 (Primary) 2 . T obacco abuse - Z72.0 3 . B AR 20.0-20.9, adult - Z68.20 Plan: * Treatment: 2. T obacco abuse Notes: she has decreased to 1/2 PPD and continues to work on cessation * Labs: * L ab: CBC Fingerstick (in house) (Collection Date & Time - 11/08/2024) Value Reference Range w bc 9.2 3.5 - 10 * l ym 24.6% 15 - 50 * m id 5.0% 2 - 15 * g ran 70.4% 35 - 80 * r bc 4.15 3.5 - 5.5 * h gb 13.0 11.5 - 16.5 * h ct 38.8 35 - 55 * m cv 93.5 75 - 100 * m ch 31.3 25 - 35 * m chc 33.5 31 - 38 * p lat 341 100 - 400 * Alexa Mckee 11/09/2024 06:56:20 AM EDT > Provider reviewed results while patient in office. * Procedure Codes: 3 6416 CAPILLARY BLOOD DRAW, 52197 CBC WITH AUTO DIFF, G8420 BMI<30 AND >=22 CALC & DOCU, G8783 BP SCR PRFRM RCMDD DEFIND SCR INTVL, G8752 MOST RECENT SYSTOLIC BP < 140MM HG, G8754 MOST RECENT DIASTOLIC BP < 90MM HG, G9902 Pt scrn tbco and id as user, G9906 Pt recv tbco cess interv * Follow Up: p rn, 1 week if not better * Images: Billing Information: * Visit Code: 35124 Office Visit, Est Pt., Level 3. * Procedure Codes: 77632 CAPILLARY BLOOD DRAW. 33879 CBC WITH AUTO DIFF. G8420 BMI<30 AND >=22 CALC & DOCU. G8783 BP SCR PRFRM RCMDD DEFIND SCR INTVL. G8752 MOST RECENT SYSTOLIC BP < 140MM HG. G8754 MOST RECENT DIASTOLIC BP < 90MM HG. G9902 Pt scrn tbco and id as user. G9906 Pt recv tbco cess interv. * Electronic signature of Yajaira Mckee APRN on 12/26/2024 at 12:47 PM EDT Sign off status: Pending * Provider: Jt Mckee ASSEMBLING MACHINE OPERATOR Date: 0 11/08/2024 Generated for Jessie guy/Boy/Ada on: 12/26/2024 12:47 PM EDT History and Physical Notes * HPI (History of Present Illness) Category Sub-Category Detail Notes Category Not es ENT/respiratory sore throat ear pain bubbly, bilateral Short of Breath with exertion Chest Pain cough yellow sputum produc tion. Pt states she went to the [facility] on Thursday and since then she has had increased congestion and productive cough. Pt denies fever but has noticed some chills Fever post nasal drainage headache chest congestion rhinorrhea some nasal congestion smoking body aches Gastroenterology Nausea Examination Category Sub-Category Detail Notes Category Not es ENT/Respiratory Oral cavity : no erythema or exudate s een on pharynx Sinuses : non tender bilateral ly Ears: TM's WNL Neck : no cervical lymphade nopathy Lungs: crackles LLL, wet co ugh General Examination HEENT: normal Heart: RRR General Appearance: NAD, appears healthy Neck: no lymphadenopathy Oral cavity: mild erythema Back: pain in lower back
--- OUTSIDE RECORDS SUMMARY | 2024-11-21 09:44 | XMS_ITS ---
Author Organization [facility] Address [address] [place] [id number] Care Team Providers Care Hydrotherapist Name Role Phone Jaleesa Menard Primary Care Provider REASON FOR VISIT due colonoscopy Encounters Encounter Location Date Provider Diagnosis [facility] [address] [place] [id number] 11/21/2024 Jaleesa Menard Screening for colon cancer Z12.11 Assessments Encounter Date Diagnosis (ICD Code) Assessment Notes Treatment Notes Treatment Clinical Notes Section Notes 11/21/2024 Screening for colon cancer (ICD-10 - Z12.11) Plan Of Treatment Pending Test Test Name Order Date Cologuard 11/21/2024 Progress Notes * DEBBIE CALZADAOB:1960 ([age] yo F)Acc No.[id number]:11/21/2024 Patient: Jaleesa HENNY PACKER :1960 A ge:64 Y S ex:Female Address:[address] [place] [address] [place] [id number] Subjective: * Chief Complaints: * D ue colonoscopy * Medical History: * Surgical History: * Hospitalization/Major Diagno stic Procedure: * Medications: Objective: * Vitals: * Physical Examination: Assessment: * Assessment: 1. S creening for colon cancer - Z12.11 (Primary) Plan: * Treatment: * Procedure Codes: * true * Date: Generated for Printi ng/Faxing/eTransmitting on: 0 12/26/2024 12:46 PM EDT
--- NOTE | 2024-12-26 12:46 | MM_ITS ---
PROCEDURE INFORMATION: Exam: MG Bilateral Screening 3D Mammography Exam date and time: 12/26/2024 1:02 PM Age: 64 years old Clinical indication: Screening examination TECHNIQUE: Imaging protocol: Bilateral Screening tomosynthesis and 2D mammography including computer-aided detection (CAD) when performed. COMPARISON: 1. MG MM DIG SCREENING MAMM BI W/CAD 06/11/2023 3:09 PM 2. MG MM DIG SCREENING MAMM BI W/CAD 01/30/2022 3:04 PM FINDINGS: MAMMOGRAPHY: Breast composition: The breasts are heterogeneously dense, which may obscure small masses. Mass: None. Architectural distortion: None. Calcifications: No suspicious calcifications. Asymmetric density: None. Skin thickening: None. Axillary adenopathy: None. IMPRESSION: No mammographic evidence of malignancy. Annual screening is recommended unless otherwise clinically indicated. ASSESSMENT: BI-RADS Category 1: Negative.
--- OUTSIDE RECORDS SUMMARY | 2024-12-26 12:47 | XMS_ITS ---
Author Organization Unknown Medications Medication Instructions Effective Dates (start - stop) Status 30 ACTUAT fluticasone furoat e 0.1 MG/ACTUAT / umeclidinium 0.0625 MG/ACTUAT / vilanterol 0.025 MG/ACTUAT Dry Powder Inhaler [Trelegy] 6698-76-36Q49:00:00.000+00:0 0 - Completed 30 ACTUAT fluticasone furoat e 0.1 MG/ACTUAT / umeclidinium 0.0625 MG/ACTUAT / vilanterol 0.025 MG/ACTUAT Dry Powder Inhaler [Trelegy] 2932-26-88K72:00:00.000+00:0 0 - Completed 30 ACTUAT fluticasone furoat e 0.1 MG/ACTUAT / umeclidinium 0.0625 MG/ACTUAT / vilanterol 0.025 MG/ACTUAT Dry Powder Inhaler [Trelegy] 6744-76-54M23:00:00.000+00:0 0 - Completed 30 ACTUAT fluticasone furoat e 0.1 MG/ACTUAT / umeclidinium 0.0625 MG/ACTUAT / vilanterol 0.025 MG/ACTUAT Dry Powder Inhaler [Trelegy] [id number]:00:00.000+00:0 0 - Completed 30 ACTUAT fluticasone furoat e 0.1 MG/ACTUAT / umeclidinium 0.0625 MG/ACTUAT / vilanterol 0.025 MG/ACTUAT Dry Powder Inhaler [Trelegy] 7459-96-39E13:00:00.000+00:0 0 - Completed 30 ACTUAT fluticasone furoat e 0.1 MG/ACTUAT / umeclidinium 0.0625 MG/ACTUAT / vilanterol 0.025 MG/ACTUAT Dry Powder Inhaler [Trelegy] 6579-78-93H44:00:00.000+00:0 0 - Completed 30 ACTUAT fluticasone furoat e 0.1 MG/ACTUAT / umeclidinium 0.0625 MG/ACTUAT / vilanterol 0.025 MG/ACTUAT Dry Powder Inhaler [Trelegy] 3562-84-71W97:00:00.000+00:0 0 - Completed [id number] 200 ACTUAT albuter ol 0.09 MG/ACTUAT Metered Dose Inhaler 8063-03-62Y93:00:00.000+00:0 0 - Completed [id number] 200 ACTUAT albuter ol 0.09 MG/ACTUAT Metered Dose Inhaler 2104-47-40O67:00:00.000+00:0 0 - Completed [id number] 200 ACTUAT albuter ol 0.09 MG/ACTUAT Metered Dose Inhaler [id number]:00:00.000+00:0 0 - Completed [id number] 200 ACTUAT albuter ol 0.09 MG/ACTUAT Metered Dose Inhaler 8305-54-01R10:00:00.000+00:0 0 - Completed [id number] 200 ACTUAT albuter ol 0.09 MG/ACTUAT Metered Dose Inhaler 7640-68-08O33:00:00.000+00:0 0 - Completed [id number] 200 ACTUAT albuter ol 0.09 MG/ACTUAT Metered Dose Inhaler 6368-45-07E36:00:00.000+00:0 0 - Completed [id number] 200 ACTUAT albuter ol 0.09 MG/ACTUAT Metered Dose Inhaler 2732-26-92W94:00:00.000+00:0 0 - Completed [id number] 200 ACTUAT albuter ol 0.09 MG/ACTUAT Metered Dose Inhaler 8395-75-70J45:00:00.000+00:0 0 - Completed [id number] 200 ACTUAT albuter ol 0.09 MG/ACTUAT Metered Dose Inhaler 2173-02-13G46:00:00.000+00:0 0 - Completed [id number] 200 ACTUAT albuter ol 0.09 MG/ACTUAT Metered Dose Inhaler 0057-64-72H71:00:00.000+00:0 0 - Completed losartan potassium 50 MG Ora l Tablet 9515-70-01Z72:00:00.000+00:0 0 - Completed cephalexin 500 MG Oral Capsule 832-38-09S59:00:00.000+00:00 - Completed losartan potassium 50 MG Ora l Tablet 8696-18-21G97:00:00.000+00:0 0 - Completed losartan potassium 50 MG Ora l Tablet 7998-60-30W50:00:00.000+00:0 0 - Completed cefdinir 300 MG Oral Capsule 07-17-16:00:00.000+00:00 - Completed - 8461-44-21X45:00 :00.000+00:00 - Completed prednisone 5 MG Oral Tablet 2021:00:00.000+00:00 - Completed {21 (methylprednisolone 4 MG Oral Tablet) } Pack [id number]:00:00.000+00:0 0 - Completed - 4604-67-48A23:00 :00.000+00:00 - Completed - 1065-91-63Y22:00 :00.000+00:00 - Completed - 0682-14-81L96:00 :00.000+00:00 - Completed montelukast 10 MG Oral Tablet 28-09-18:00:00.000+00:00 - Completed flecainide acetate 50 MG Ora l Tablet 2708-25-26P12:00:00.000+00:0 0 - Completed flecainide acetate 50 MG Ora l Tablet 1462-04-45T38:00:00.000+00:0 0 - Completed flecainide acetate 50 MG Ora l Tablet 3751-48-05F33:00:00.000+00:0 0 - Completed flecainide acetate 50 MG Ora l Tablet 5656-76-41C01:00:00.000+00:0 0 - Completed losartan potassium 50 MG Ora l Tablet 8166-37-71A30:00:00.000+00:0 0 - Completed montelukast 10 MG Oral Tablet 28-10-16:00:00.000+00:00 - Completed montelukast 10 MG Oral Tablet 29-12-11:00:00.000+00:00 - Completed montelukast 10 MG Oral Tablet 28-11-13:00:00.000+00:00 - Completed montelukast 10 MG Oral Tablet 28-08-21:00:00.000+00:00 - Completed montelukast 10 MG Oral Tablet 31-07-23:00:00.000+00:00 - Completed montelukast 10 MG Oral Tablet 27-01-11:00:00.000+00:00 - Completed losartan potassium 50 MG Ora l Tablet 5886-53-36A42:00:00.000+00:0 0 - Completed losartan potassium 50 MG Ora l Tablet 0414-08-89L84:00:00.000+00:0 0 - Completed losartan potassium 50 MG Ora l Tablet 1090-63-48N82:00:00.000+00:0 0 - Completed losartan potassium 50 MG Ora l Tablet 1186-23-32N52:00:00.000+00:0 0 - Completed losartan potassium 50 MG Ora l Tablet 7609-79-46N55:00:00.000+00:0 0 - Completed montelukast 10 MG Oral Tablet 29-04-21:00:00.000+00:00 - Completed montelukast 10 MG Oral Tablet 29-03-21:00:00.000+00:00 - Completed estradiol 2 MG Oral Tablet :00:00.000+00:00 - Completed estradiol 2 MG Oral Tablet :00:00.000+00:00 - Completed estradiol 2 MG Oral Tablet :00:00.000+00:00 - Completed estradiol 2 MG Oral Tablet :00:00.000+00:00 - Completed estradiol 2 MG Oral Tablet :00:00.000+00:00 - Completed estradiol 2 MG Oral Tablet :00:00.000+00:00 - Completed estradiol 2 MG Oral Tablet :00:00.000+00:00 - Completed estradiol 2 MG Oral Tablet :00:00.000+00:00 - Completed estradiol 2 MG Oral Tablet :00:00.000+00:00 - Completed - 5684-05-06L28:00 :00.000+00:00 - Completed albuterol 0.83 MG/ML Inhalat ion Solution 9216-40-37R46:00:00.000+00:0 0 - Completed albuterol 0.83 MG/ML Inhalat ion Solution [id number]:00:00.000+00:0 0 - Completed albuterol 0.83 MG/ML Inhalat ion Solution 4950-83-98X54:00:00.000+00:0 0 - Completed meloxicam 15 MG Oral Tablet 2022:00:00.000+00:00 - Completed [id number] 200 ACTUAT albuter ol 0.09 MG/ACTUAT Metered Dose Inhaler 2668-36-13C67:00:00.000+00:0 0 - Completed [id number] 200 ACTUAT albuter ol 0.09 MG/ACTUAT Metered Dose Inhaler 3219-54-04K49:00:00.000+00:0 0 - Completed [id number] 200 ACTUAT albuter ol 0.09 MG/ACTUAT Metered Dose Inhaler 0349-90-53T66:00:00.000+00:0 0 - Completed [id number] 200 ACTUAT albuter ol 0.09 MG/ACTUAT Metered Dose Inhaler 3435-48-82C59:00:00.000+00:0 0 - Completed [id number] 200 ACTUAT albuter ol 0.09 MG/ACTUAT Metered Dose Inhaler 6997-60-01D06:00:00.000+00:0 0 - Completed [id number] 200 ACTUAT albuter ol 0.09 MG/ACTUAT Metered Dose Inhaler 9206-18-69C96:00:00.000+00:0 0 - Completed [id number] 200 ACTUAT albuter ol 0.09 MG/ACTUAT Metered Dose Inhaler 3316-66-88Y69:00:00.000+00:0 0 - Completed [id number] 200 ACTUAT albuter ol 0.09 MG/ACTUAT Metered Dose Inhaler 8003-57-74G33:00:00.000+00:0 0 - Completed [id number] 200 ACTUAT albuter ol 0.09 MG/ACTUAT Metered Dose Inhaler 4753-17-63Q51:00:00.000+00:0 0 - Completed [id number] 200 ACTUAT albuter ol 0.09 MG/ACTUAT Metered Dose Inhaler 1655-78-62Y86:00:00.000+00:0 0 - Completed [id number] 200 ACTUAT albuter ol 0.09 MG/ACTUAT Metered Dose Inhaler 6063-16-71A25:00:00.000+00:0 0 - Completed [id number] 200 ACTUAT albuter ol 0.09 MG/ACTUAT Metered Dose Inhaler 9339-42-66L36:00:00.000+00:0 0 - Completed [id number] 200 ACTUAT albuter ol 0.09 MG/ACTUAT Metered Dose Inhaler 1307-17-98X73:00:00.000+00:0 0 - Completed [id number] 200 ACTUAT albuter ol 0.09 MG/ACTUAT Metered Dose Inhaler 1562-14-63N30:00:00.000+00:0 0 - Completed [id number] 200 ACTUAT albuter ol 0.09 MG/ACTUAT Metered Dose Inhaler 1046-46-75L73:00:00.000+00:0 0 - Completed Patient Care team information Name Category Status Period Participants - - Proposed period not known -
--- OUTSIDE RECORDS SUMMARY | 2024-12-26 12:47 | XMS_ITS | Patient Health Record ---
Author Organization [facility] Address [address] [facility] [address] [place] [id number] Care Team Providers Care Reweaver Name Role Phone Jaleesa Mneard Primary Care Provider Alexa Mckee Unavailable [phone] Elida Rowe Unavailable [phone] Allergies Allergen (clinical drug ingredient) Drug/Non Drug [...] Range Notes CBC Fingerstick (in house) Reviewed date:03/17/2024 09:57:26 AM Interpretation: Performing Lab: Notes/Report: wbc 8.0 3.5 - 10 lym 25.6 15 - 50 mid 6.1 2 - 15 gran 68.3 35 - 80 rbc 4.59 3.5 - 5.5 hgb 14.6 11.5 - 16.5 hct 44.3 35 - 55 mcv 96.3 75 - 100 mch 31.9 25 - 35 mchc 33.1 31 - 38 plat 209 100 - 400 P-Vitamin D, 1, 25 Dihydroxy Reviewed date:10/20/2024 09:46:48 AM Interpretation: Normal Performing Lab: Notes/Report: Test performed by [facility] [facility] , [address], [place] [address] Tristan Encarnacion MD, Aircraft Instrument Rep[employer]r CLIA: [id number] Vitamin D, 1, 25 Dihydroxy 42.7 19.9-79.3 pg/m L P-TSH reflex to FT4 Reviewed date:10/20/2024 09:46:48 AM Interpretation: Normal Performing Lab: Notes/Report: Test performed by [employer] [address] [place] [address] [address] C, [place] [address] Tristan Encarnacion MD, Aircraft Instrument Repairer CLIA: [id number] TSH reflex to FT4 0.76 0.43-5.25 mU/L P-Lipid Panel Reviewed date:10/20/2024 09:46:48 AM Interpretation:non-HDL 139 Performing Lab: Notes/Report: Test performed by [employer] [address] [place] [address] [place] [address] Tristan Encarnacion MD, Aircraft Instrument Rep[employer]r CLIA: [id number] Cholesterol 190 <200 mg/dL Triglycerides 132 <150 [...] Results: 113 Units: mg/dL % Change: 0% P-Comprehensive Metabolic Pa sheila (CMP) Reviewed date:10/20/2024 09:46:48 AM Interpretation:Creat 1.12, eGFR 55, Alk Phos 132 Performing Lab: Notes/Report: Test performed by [employer] [address] [place], [place] [address] [address] , [address], [place] [address] Tristan Encarnacion MD, Aircraft Instrument Repairer CLIA: [id number] Sodium 142 135-145 mmol/L Potassium 4.3 3.5-5.3 [...] 0.5 <0.2-1.2 mg/dL A/G Ratio 1.7 1.1-2.5 P-Vitamin B12 Reviewed date:10/20/2024 09:46:48 AM Interpretation:1362 Performing Lab: Notes/Report: Test performed by [employer] [address] [place], [place] [address] [address] , [place] [address] Tristan Encarnacion MD, Aircraft Instrument Repairer CLIA: [id number] Vitamin B12 7130 779-1324 pg/mL CBC Fingerstick (in house) Reviewed date:10/20/2024 09:46:48 [...] - 38 plat 324 100 - 400 Covid test (in house) Reviewed date:07/13/2024 12:42:42 PM Interpretation: Performing Lab: Notes/Report: Result: Neg CBC Fingerstick (in house) Reviewed date:07/13/2024 12:43:04 PM Interpretation: Performing Lab: Notes/Report: wbc 7.6 3.5 - 10 lym 23.0% 15 - 50 mid 6.0% 2 - 15 gran 71.0% 35 - 80 rbc 4.48 3.5 - 5.5 hgb 14.4 11.5 - 16.5 hct 42.4 35 - 55 mcv 94.6 75 - 100 mch 32.2 25 - 35 mchc 34.0 31 - 38 plat 198 100 - 400 Influenza Screen (in house) Reviewed date:07/13/2024 12:42:53 PM Interpretation: Performing Lab: Notes/Report: results Neg CBC Fingerstick (in house) Reviewed date:04/08/2024 04:17:54 PM Interpretation: Performing Lab: Notes/Report: wbc 11.9 3.5 - 10 lym 18.6 15 - 50 mid 4.6 2 - 15 gran 76.8 35 - 80 rbc 4.53 3.5 - 5.5 hgb 14.4 11.5 - 16.5 hct 43.4 35 - 55 mcv 95.9 75 - 100 mch 31.8 25 - 35 mchc 33.2 31 - 38 plat 241 100 - 400 CBC Fingerstick (in house) Reviewed date:11/09/2024 06:56:34 [...] - 38 plat 341 100 - 400 Medications Medication SIG (Take, Route, Frequency, Duration) Notes Start Date End Date Status Medrol 4 MG as directed Orally daily; Duration: 6 days 11/08/2024 Active Meloxicam 7.5 MG 1 tablet Orally twic e a day; Duration: 30 day(s) 03/17/2024 Not-Taking Losartan Potassium 50 MG 1 tablet Orally once daily; Duration: 90 days Active Estradiol 2 MG 1 tablet Orally Once a day; Duration: 90 days Active Flecainide Acetate 50 MG 1 tab(s) Orally every 12 hrs; Duration: 30 days Active Trelegy Ellipta 200-62.5-25 MCG/ACT 1 puff Inhalation Once a day Active Montelukast Sodium 10 MG 1 tablet Orally once daily; Duration: 90 days Active Cefdinir 300 MG as directed Orally twice a day; Duration: 7 days 11/08/2024 Active Vitamin D3 125 MCG (5000 UT) 1 capsule Orally Once a day 06/23/2023 Active Allergy Relief 10 mg TAKE 1 tab(s) BY [facility] once a day FOR 30 days; Duration: 30 Active Fluticasone Propionate 50 MCG/ACT place 1 spray in each nostril Nasally Once a day 30 day(s); Duration: 30 Active Vitamin B-12 1000 MCG 1 tab(s) orally on ce a day; Duration: 30 day(s) 08/22/2015 Active Immunizations Vaccine Route Administration Date Status Comme nts Tetanus Tdap-Adacel (over 7yrs) IM Intramuscular 09/27/2007 Administered Tetanus Tdap-Adacel (over 7yrs) IM Intramuscular 10/06/2024 Administered Problems Problem Type SNOMED Code ICD Code Onset Dates Problem Status W/U Status Risk Notes Problem Tobacco abuse (3132788204) Tobacco abuse (Z72.0) Active confirmed Problem Pain of right shoulder region (finding) (9874440396) Pain in right shoulder (M25.511) Active confirmed Problem Vitamin D deficiency (98799883) Vitamin D deficiency (E55.9) Active confirmed Problem Vitamin B12 deficiency (454996055) Vitamin B12 deficiency (E53.8) Active confirmed Problem Essential hypertension (71217820) Essential hypertension (I10) Active confirmed Problem Anxiety (87056676) Anxiety (F41.9) Active confi rmed Problem Sciatic nerve lesion (731693525) Piriformis syndrome of right side (G57.01) Active confirmed Problem Environmental allergy (114233229) Environmental allergies (Z91.048) Active confirmed Problem Mixed anxiety and depressive disorder (270932787) Depression with anxiety (F41.8) Active confirmed Problem Acute exacerbation of chronic obstructive airways disease (866789433) COPD exacerbation (J44.1) Active confirmed Problem Environmental allergy (193472835) Environmental allergies (Z91.09) Active confirmed Problem Seasonal allergic rhinitis (727343136) Other seasonal allergic rhinitis (J30.2) Active confirmed Problem Sciatica (98032722) Lumbago with sciatica, right side (M54.41) Active confirmed Problem Generalized anxiety disorder (63853960) Generalized anxiety disorder (F41.1) Active confirmed Problem Chronic pain (53817201) Other chronic pain (G89.29) Active confirmed Problem Sciatica (52348292) Lumbago with sciatica, left side (M54.42) Active confirmed Problem Cervical disc disease (091537502) Cervical disc disease (M50.90) Active confirmed Problem Uncomplicated moderate persistent asthma (415771284) Moderate persistent asthma without complication (J45.40) Active confirmed Problem Pulmonary emphysema (89680457) Pulmonary emphysema, unspecified emphysema type (J43.9) Active confirmed Problem Postmenopausal disorder (N95.9) Active confirmed Problem Gastroesophageal reflux disease (300798980) Gastroesophageal reflux disease, esophagitis presence not specified (K21.9) Active confirmed Problem Allergic rhinitis (81842834) Allergic rhinitis (J30.9) Active confirmed Problem Hyperlipidaemia (71092054) Hyperlipidemia, unspecified hyperlipidemia type (E78.5) Active confirmed Problem Adjustment disorder with anxious mood (22688833) Adjustment disorder with anxious mood (F43.22) Active confirmed Problem Postmenopausal state (finding) (00370418) Postmenopausal symptoms (N95.9) Active confirmed Problem Shoulder joint pain (212764616) Acute pain of right shoulder (M25.511) Active confirmed Problem Mammography abnormal (330483584) Abnormal mammogram of right breast (R92.8) Active confirmed Problem Cardiac dysrhythmia (899790261) Cardiac dysrhythmia, unspecified (I49.9) Active confirmed Problem Sciatica (92476682) Acute midlin e low back pain with right-sided sciatica (M54.41) Active confirmed Problem Hypertensive urgency (808941248) Hypertensive urgency (I16.0) Active confirmed Problem Fibrocystic breast changes (54244224) Fibrocystic breast disease (FCBD), unspecified laterality (N60.19) Active confirmed Problem Seasonal allergic rhinitis (541932202) Seasonal allergic rhinitis, unspecified trigger (J30.2) Active confirmed Vital Signs Heart Rate 75 /min 11/08/2024 Blood pressure diastolic 80 mm Hg 11/08/2024 Height 64 in 11/08/2024 Blood pressure systolic 130 mm Hg 11/08/2024 Weight 119.2 lbs 11/08/2024 BMI 20.46 kg/m2 11/08/2024 Encounters Encounter Location Date Provider [facility] [address] [place] [id number] 03/17/2024 Alexa Mckee Moderate persistent asthma without complication J45.40 ; Acute upper respiratory infection J06.9 ; Pulmonary emphysema, unspecified emphysema type J43.9 ; Tobacco abuse Z72.0 ; Other seasonal allergic rhinitis J30.2 ; Back pain M54.9 and Wound of right foot S91.301A [facility] [address] [place], [place] [id number] 04/08/2024 Elidayoly Rowe Acute URI J06.9 and Bronchitis J40 [facility] [address] [place], [place] [id number] 07/13/2024 Elida Jae Acute upper respirat ory infection J06.9 ; Bronchitis J40 ; Pulmonary emphysema, unspecified emphysema type J43.9 and Polyarthralgia M25.50 [facility] [address] [place], [place] [id number] 10/06/2024 Elida Rowe Screening mammogram, encounter for Z12.31 ; Osteoporosis screening Z13.820 ; Colon cancer screening Z12.11 ; Pulmonary emphysema, unspecified emphysema type J43.9 ; Gastroesophageal reflux disease, esophagitis presence not specified K21.9 ; Vitamin B12 deficiency E53.8 ; Essential hypertension I10 ; Vitamin D deficiency E55.9 and BMI 20.0-20.9, adult Z68.20 [facility] [address] [place], [place] [id number] 10/10/2024 Elida Rowe Essential hypertensi on I10 ; Hyperlipidemia, unspecified hyperlipidemia type E78.5 ; Depression with anxiety F41.8 ; Vitamin D deficiency E55.9 and Vitamin B12 deficiency E53.8 [facility] [address] [place], [place] [id number] 11/08/2024 Alexa Mckee Bronchitis J40 ; Tob acco abuse Z72.0 and BMI 20.0-20.9, adult Z68.20 [facility] [address] [place], [place] [id number] 01/07/2024 Jaleesa Menard [facility] [address] [place], [place] [id number] 02/02/2024 Jaleesa Menard [facility] [address] [place], [place] [id number] 03/17/2024 Jaleesa Menard [facility] [address] [place], [place] [id number] 05/06/2024 Jaleesa Menard [facility] [address] [place], [place] [id number] 05/23/2024 Jaleesa Menard [facility] [address] [place], [place] [id number] 07/04/2024 Jaleesa Menard [facility] [address] [place], [place] [id number] 08/03/2024 Jaleesa Menard [facility] [address] [place], [place] [id number] 10/07/2024 Jaleesa Menard [facility] [address] [place], [place] [id number] 10/18/2024 Elida Rowe [facility] [address] [place], [place] [id number] 10/20/2024 Elida Rowe [facility] [address] [place], [place] [id number] 11/21/2024 Jaleesa Menard Screening for colon cancer Z12.11 Assessments Encounter Date Diagnosis (ICD Code) Assessment Notes Treatment Notes Treatment Clinical Notes Section Notes 11/08/2024 Bronchitis (ICD-10 - J40) fluids, rest, supportive measures for fever/symptom relief; try not to smoke 10/10/2024 Hyperlipidemia, unspecified hyperlipidemia type (ICD-10 - E78.5) 11/08/2024 Tobacco abuse (ICD-10 - Z72.0) she has decreased to 1/2 PPD and continues to work on cessation 10/10/2024 Essential hypertension (ICD-10 - I10) 11/21/2024 Screening for colon cancer (ICD-10 - Z12.11) 03/17/2024 Moderate persistent asthma without complication (ICD-10 - J45.40) 03/17/2024 Acute upper respiratory infection (ICD-10 - J06.9) fluids, rest, supportive measures for fever/symptom relief 10/06/2024 Osteoporosis screening (ICD-10 - Z13.820) 10/06/2024 Screening mammogram, encounter for (ICD-10 - Z12.31) 04/08/2024 Bronchitis (ICD-10 - J40) Has inhaler at home. 04/08/2024 Acute URI (ICD-10 - J06.9) 07/13/2024 Bronchitis (ICD-10 - J40) 07/13/2024 Acute upper respiratory infection (ICD-10 - J06.9) 07/13/2024 Pulmonary emphysema, unspecified emphysema type (ICD-10 - J43.9) 10/06/2024 Colon cancer screening (ICD-10 - Z12.11) 03/17/2024 Pulmonary emphysema, unspecified emphysema type (ICD-10 - J43.9) 10/10/2024 Depression with anxiety (ICD-10 - F41.8) 11/08/2024 BMI 20.0-20.9, adult (ICD-10 - Z68.20) 10/10/2024 Vitamin D deficiency (ICD-10 - E55.9) 03/17/2024 Tobacco abuse (ICD-10 - Z72.0) discussed cessation; life changes have been difficult; cannot take many meds due to flecainaide 10/06/2024 Pulmonary emphysema, unspecified emphysema type (ICD-10 - J43.9) 07/13/2024 Polyarthralgia (ICD-10 - M25.50) 10/06/2024 Gastroesophageal reflux disease, esophagitis presence not specified (ICD-10 - K21.9) 03/17/2024 Other seasonal allergic rhinitis (ICD-10 - J30.2) 10/10/2024 Vitamin B12 deficiency (ICD-10 - E53.8) 03/17/2024 Back pain (ICD-10 - M54.9) 10/06/2024 Vitamin B12 deficiency (ICD-10 - E53.8) 10/06/2024 Essential hypertension (ICD-10 - I10) 03/17/2024 Wound of right foot (ICD-10 - S91.301A) OTC abx cream; protect from rubbing 10/06/2024 Vitamin D deficiency (ICD-10 - E55.9) 10/06/2024 BMI 20.0-20.9, adult (ICD-10 - Z68.20) 10/06/2024 Other Patient will come back to the office for fasting labs. She will need CBC, CMP, Lipid, TSH with reflex to free T4, Vit D, Vit B12 Plan Of Treatment Pending Test Test Name Order Date MRI : Spine, Lumbosacral, without contra st 09/01/2023 DEXA Hip and Spine 10/06/2024 Mammogram 10/06/2024 Cologuard 11/21/2024 Insurance Providers Payer Name Payer Address Payer Phone Subscriber Number Group Number Insured Name Patient Relationship to Insured Coverage Start Date Coverage End Date [employer] [address] [place] [address] [phone] [id number] HENNY CALZADA Self - patient is the insured Medications Administered Medication Instructions Date of Administration Dosage Notes Depo- Medrol 40 mg/ml 02/15/2011 1 mL Dexamethasone 01/27/2009 1 mL Dexamethasone 04/03/2014 1 mL Medical (General) History Medical History History ICD Code CARMEN Tachypalpitation Migraine Asthma Normal Heart Cath, Except MVP, 8 LS x-rays, Disc Space Narrowing L4-5, COPD allergic rhinitis Surgical History Surgery Date(Month/Year) Hysterectomy Cholecystectomy C5-C6 Disc Cervical Discectomy & Fusion; [facility] Dr. Jimenez 08/13/2007 Back Injections 05/2014 Back Injections 06/2014 Hospitalization History Reason Date(Month/Year) Irregular Heartbeat 12/2009 Bacterial Infection of Stomach 8 HBP & Palpitations 2004
== END 2024-12-26 23:59 | disposition home or self-care (01) ==
LOC: RAD 12:44
PROVIDERS: PCP Physician Assistant; Visit Provider Physician Assistant
DX: Z12.31 Encounter for screening mammogram for malignant neoplasm of breast (principal); R92.333 Mammographic heterogeneous density, bilateral breasts
CPT/HCPCS: 77063; 77067